=== PATIENT | female | born 1990 | race Caucasian/White ===

== ENCOUNTER 2018-10-28 10:06 | Outpatient (CLI) | payer OTHER ==
--- NOTE | 2018-10-28 11:04 | ULT ---
OB ULTRASOUND: HISTORY: Size and dates. FINDINGS: A single live intrauterine gestation is seen with measurements corresponding to an estimated gestatio nal age of 20 weeks 3 days and FEI at 03/14/2019. The estimated weight measures 377 gm or 13 o unces. This corresponds to 41st percentile by Hadlock criteria. heart rate measures 146 b.p.m. Placenta is anteriorly located without evidence of placenta pre via. ARTHUR measures 11 cm. A 3-vessel cord, cord insertion, kidneys, bladder, stomach, 4-chamber heart, lateral ventricles , cerebellum, spine, lips/nose, upper and lower extremities are visualized. No definite anomal ies are seen. IMPRESSION: Single live intrauterine of 20 weeks 3 days estimated gestational age and estimated date of delivery at 03/14/2019. POS: NICOLAS
== END 2018-10-28 10:07 | disposition home or self-care (01) ==
LOC: NAV ULT 10:06
PROVIDERS: ATTEND Family Medicine
DX: O09.892 Supervision of other high risk pregnancies, second trimester (principal); Z3A.20 20 weeks gestation of pregnancy
CPT/HCPCS: 76805